=== PATIENT | male | born 1980 | race Caucasian/White ===

== ENCOUNTER 2020-01-06 12:36 | Emergency (ER) | payer SELFPAY ==
--- NOTE | 2020-01-06 13:19 | EDPHYS ---
Physician Documentation [facility] Name: Kennedy Gross Age: 39 yrs Sex: Male : 1980 Arrival Date: 01/06/2020 Time: 12:40 Bed 7 Private MD: Silverio Hampton HPI: 01/05 13:14 This 39 yrs old Male presents to ER via Ambulatory with complaints of Back jmm Pain, Testicular Pain. 13:14 The patient presents with pain that is acute. Onset: The symptoms/episode jmm began/occurred acutely, today. The pain radiates to the pelvis. Associated signs and symptoms: Pertinent negatives: abdominal pain, chest pain, constipation, dysuria, fever, headache, hematuria, incontinence, nausea, numbness, tingling, urinary retention, vomiting, weakness. Patient states hurting his back after lifting a 30 lb pallet. Patient states groin pain has resolved. Denies any bowel or bladder issues. . Historical: - Allergies: 12:44 No Known Allergies; ll1 - PSHx: 13:16 Spinal fusion; foot; sv - Immunization history:: Flu vaccine is not up to date. - Social history:: Smoking status: Patient reports the use of cigarette tobacco products, smokes one-half pack cigarettes per day. ROS: 13:14 Constitutional: Negative for fever, chills, and weight loss, Cardiovascular: Negative jmm for chest pain, palpitations, and edema, Respiratory: Negative for shortness of breath, cough, wheezing, and pleuritic chest pain. 13:14 Back: Positive for pain with movement. 13:14 All other systems are negative. Exam: 13:14 Constitutional: This is a well developed, well nourished patient who is awake, alert, jmm and in no acute distress. Head/Face: atraumatic. Eyes: EOMI, no conjunctival erythema appreciated ENT: Moist Mucus Membranes Neck: Trachea midline, Supple Chest/axilla: Normal chest wall appearance and motion. Cardiovascular: Regular rate and rhythm. No edema appreciated Respiratory: Normal respirations, no respiratory distress appreciated Abdomen/GI: Non distended, soft Back: Normal ROM Skin: General appearance color normal MS/ Extremity: Moves all extremities, no obvious deformities appreciated, no edema noted to the lower extremities Neuro: Awake and alert, normal gait Psych: Behavior is normal, Mood is normal, Patient is cooperative and pleasant 13:14 Back: vertebral tenderness, is not appreciated. Vital Signs: 12:43 BP 127 / 70; Pulse 105; Resp 17; Temp 99.1; Pulse Ox 100% ; Weight 81.65 kg; Height 5 ll1 ft. 11 in. (180.34 cm); Pain 8/10; 12:43 Body Mass Index 25.10 (81.65 kg, 180.34 cm) ll1 MDM: 12:49 Patient medically screened. [facility] 13:14 Data reviewed: vital signs, nurses notes. Counseling: I had a detailed discussion with mike the patient and/or guardian regarding: the historical points, exam findings, and any diagnostic results supporting the discharge/admit diagnosis, the need for outpatient follow up, to return to the emergency department if symptoms worsen or persist or if there are any questions or concerns that arise at home. Refusal of service: The patient/guardian displays adequate decision making capability and despite a detailed discussion of alternatives, benefits, risks, and consequences refuses: all X-rays. ED course: Patient refused further evaluation. patient states pain has decreased since initial onset. extensor hallucis longus intact bilaterally. . Administered Medications: No medications were administered Disposition: 18:01 Co-signature as Attending Physician, Silverio Phelan MD I agree with the assessment and [facility] plan of care. Disposition: 01/06/20 13:18 Discharged to Home. Impression: Strain of muscle, fascia and tendon of abdomen, lower back and pelvis. - Condition is Stable. - Discharge Instructions: Back Pain, Adult. - Medication Reconciliation Form, Thank You Letter, Antibiotic Education, Prescription Opioid Use form. - Follow up: Private Physician; When: 2 - 3 days; Reason: Recheck today's complaints, Continuance of care, Re-evaluation by your physician. Signatures: Sylvia Black RN RN sv Anderson, Corey, MD MD cha Mickail, Joel, PA PA jmm Lewis, Lynsay RN RN ll1 Corrections: (The following items were deleted from the chart) 13:16 12:44 PSHx: slinal fusion, foot sx; ll1 sv 13:23 13:18 01/06/2020 13:18 Discharged to Home. Impression: Strain of muscle, fascia and sv tendon of abdomen, lower back and pelvis. Condition is Stable. Forms are Medication Reconciliation Form, Thank You Letter, Antibiotic Education, Prescription Opioid Use. Follow up: Private Physician; When: 2 - 3 days; Reason: Recheck today's complaints, Continuance of care, Re-evaluation by your physician. mike
--- NOTE | 2020-01-06 13:19 | ER ---
Nurse's Notes [facility] Name: Kennedy Gross Age: 39 yrs Sex: Male : 1980 Arrival Date: 01/06/2020 Time: 12:40 Bed 7 Private MD: Diagnosis: Strain of muscle, fascia and tendon of abdomen, lower back and pelvis Presentation: 01/05 12:43 Chief complaint: Patient states: Lifting heavy things at work yesterday. Low back pain ll1 and left testicular pain and swelling since. No fever. Coronavirus screen: Client denies travel out of the [place] in the last 14 days. At this time, the client does not indicate any symptoms associated with coronavirus-19. Ebola Screen: Patient denies travel to an Ebola-affected area in the 21 days before illness onset. Initial Sepsis Screen: Does the patient meet any 2 criteria? No. Patient's initial sepsis screen is negative. Does the patient have a suspected source of infection? Yes: Other: testes pain. Risk Assessment: Do you want to hurt yourself or someone else? Patient reports no desire to harm self or others. Onset of symptoms was January 05, 2020. 12:43 Method Of Arrival: Ambulatory ll1 12:43 Acuity: LIZ 2 hb Historical: - Allergies: 12:44 No Known Allergies; ll1 - PSHx: 13:16 Spinal fusion; foot; sv - Immunization history:: Flu vaccine is not up to date. - Social history:: Smoking status: Patient reports the use of cigarette tobacco products, smokes one-half pack cigarettes per day. Screenin:40 Abuse screen: Denies threats or abuse. Denies injuries from another. Nutritional sv screening: No deficits noted. Tuberculosis screening: No symptoms or risk factors identified. Fall Risk None identified. Assessment: 13:13 General: Appears in no apparent distress. comfortable, well developed, Behavior is sv calm, cooperative, appropriate for age. General: Pt stated that he's feeling better after taking Motrin earlier today and he was just being over cautious. Pt asking to go home and stated if anything worse happens that he will come back tomorrow. Stated that he would talk to his boss because it happened at work after lifting a 30 pound pallet.. Pain: Denies pain. Neuro: Level of Consciousness is awake, alert, obeys commands, Oriented to person, place, time, situation, Moves all extremities. Full function Gait is steady, Speech is normal. Respiratory: Respiratory effort is even, unlabored, Respiratory pattern is regular, symmetrical. GI: Patient currently denies incontinence. : Denies incontinence. Derm: Skin is intact, Skin is pink, warm \T\ dry. Musculoskeletal: Circulation, motion, and sensation intact. Range of motion: intact in all extremities, Denies numbness in, right leg and left leg. Vital Signs: 12:43 BP 127 / 70; Pulse 105; Resp 17; Temp 99.1; Pulse Ox 100% ; Weight 81.65 kg; Height 5 ll1 ft. 11 in. (180.34 cm); Pain 8/10; 12:43 Body Mass Index 25.10 (81.65 kg, 180.34 cm) ll1 ED Course: 12:40 Patient arrived in ED. mr 12:40 Patient has correct armband on for positive identification. Bed in low position. Call sv light in reach. 12:44 Triage completed. ll1 12:45 Arm band placed on Patient placed in an exam room, on a stretcher. ll1 12:46 Da Barlow PA is PHCP. [facility] 12:46 Silverio Phelan MD is Attending Physician. [facility] 12:49 Sylvia Black RN is Primary Nurse. vg1 12:50 Awaiting ED provider evaluation. sv 13:16 No provider procedures requiring assistance completed. Patient did not have IV access sv during this emergency room visit. Administered Medications: No medications were administered Outcome: 13:18 Discharge ordered by MD. [facility] 13:23 Discharged to home ambulatory. sv 13:23 Condition: stable 13:23 Discharge instructions given to patient, Instructed on discharge instructions, follow up and referral plans. Demonstrated understanding of instructions, follow-up care. 13:23 Patient left the ED. sv Signatures: Sylvia Black, JUAN PABLO RN Da Tamayo PA PA jm Allison Escalante mr HearnChacha, RN Barb Salazar RN RN vg1 Kristen Forman RN RN ll1 Corrections: (The following items were deleted from the chart) 12:46 12:43 Acuity: LIZ 3 ll1 hb 13:16 12:44 PSHx: slinal fusion, foot sx; ll1 sv
[2020-01-06 13:33] VITALS: BP 127/70; TEMP 99.1; O2SAT 100
== END 2020-01-06 13:23 | disposition home or self-care (01) ==
LOC: ER 12:36
DX: S39.012A Strain of muscle, fascia and tendon of lower back, initial encounter (principal); S39.013A Strain of muscle, fascia and tendon of pelvis, initial encounter; X50.0XXA Overexertion from strenuous movement or load, initial encounter; Y93.89 Activity, other specified; Y92.9 Unspecified place or not applicable; F17.210 Nicotine dependence, cigarettes, uncomplicated
CPT/HCPCS: 99281